=== PATIENT | male | born 1975 | race African-American/Black ===

== ENCOUNTER 2019-01-27 19:41 | Emergency (ER) | payer MEDICARE, MEDICAID ==
[~2019-01-27] VITALS: Ht 180.3 cm; Wt 110.0 kg
--- NOTE | 2019-01-27 20:04 | NUR ---
ASSIST PRIMARY WITH TRIAGE. PT PLACED IN GOWN AND ON BP CUFF, PULSE OX. PULSE OX READING 89% ON RA, 2LITERS OXYGEN PLACED VIA NC. PT DENIES ANY RECENT ILLNESS, COUGH/COLD OR GI SX. CORDOVA AND OSTOMY IN PLACE. IV NS INFUSING. CALL LIGHT WITHIN REACH, FAMILY AT BS.
[2019-01-27] MEDS ORDERED: CEFTRIAXONE PMX 1GM/50ML 50 ML IVPB ONE (21:00)
[2019-01-27] MEDS ORDERED: SODIUM CHLORIDE 0.9% 1,000ML IVBOLUS ONE (21:00)
[2019-01-27] MEDS ORDERED: SODIUM CHLORIDE FLUSH 10ML SYR IVF ONE (21:00)
[2019-01-27 21:19] LABS: MEAN CORPUSCULAR HGB CONC 32.3 g/dL (33.2-36.2); MEAN CORPUSCULAR VOLUME 86.9 fL (81-97); MEAN PLATELET VOLUME 11.8 fL (7.4-10.4); PLATELET COUNT 131 x10^3/uL (130-400); RED BLOOD COUNT 4.61 x10^6/uL (4.38-5.82); RED CELL DISTRIBUTION WIDTH 14.5 % (9.4-14.8)
[2019-01-27] MEDS ORDERED: CEFTRIAXONE PMX 1GM/50ML 50 ML ONE (21:22)
[2019-01-27 21:27] LABS: ALANINE AMINOTRANSFERASE 87 U/L (12-78); ALBUMIN 3.6 g/dL (3.4-5.0); ANION GAP 7 mmol/L (5-15); CHLORIDE 107 mmol/L (98-107); CREATININE 1.22 mg/dL (0.7-1.3)
--- NOTE | 2019-01-27 21:27 | NUR ---
ua obtained and sent to lab prior medication- medicated per emar (ABX/IVF) TEMP REBOUNDED TO 99.6 70, 110/47 PROVIDED ASKED ABOUT UA PRIOR TO ABX ADMIN
[2019-01-27 21:29] LABS: ALKALINE PHOSPHATASE 123 U/L (45-117); BILIRUBIN,TOTAL 0.2 mg/dL (0.2-1.0)
[2019-01-27 21:32] LABS: BASOPHILS # (AUTO) 0.03 x10^3/uL (0-0.1); BASOPHILS % (AUTO) 0 % (0-1); EOSINOPHILS # (AUTO) 0.05 x10^3/uL (0-0.4); EOSINOPHILS % (AUTO) 0 % (1-7); LYMPHOCYTES # (AUTO) 2.21 x10^3/uL (1-3.4); LYMPHOCYTES % (AUTO) 12 % (22-44); MD SCAN; MONOCYTES # (AUTO) 0.94 x10^3/uL (0.2-0.8); MONOCYTES % (AUTO) 5 % (2-9); NEUTROPHILS # (AUTO) 14.84 x10^3/uL (1.8-6.8); NEUTROPHILS % (AUTO) 82 % (42-75)
--- NOTE | 2019-01-27 21:40 | NUR ---
Er provider to bedside- As patient looks so well & temp improved. Er provider comfortable discharging patient with po rx
[2019-01-27 21:45] VITALS: BP 116/52
[2019-01-27 23:12] LABS: CULTURE INDICATED? YES; MICROSCOPIC INDICATED
[2019-01-28] MEDS ORDERED: TIZA2CAP PO (23:23)
[2019-01-28] MEDS ORDERED: OXYB5TAB7 PO (23:23)
[2019-01-28] MEDS ORDERED: DOCU240C53 PO (23:23)
[2019-01-28] MEDS ORDERED: cholesterol med (23:23)
[2019-01-28] MEDS ORDERED: GABA300C10 PO (23:23)
[2019-01-28] MEDS ORDERED: [UNRECOGNIZED DRUG - REMARK] (23:23)
[2019-01-28] MEDS ORDERED: BACL-19 PO (23:23)
[2019-01-28] MEDS ORDERED: [UNRECOGNIZED DRUG - CODE] RC (23:23)
== END 2019-01-27 22:45 | disposition home or self-care (01) ==
LOC: ED 22:05
DX: R50.9 Fever, unspecified (principal)
CPT/HCPCS: 36415; 71045; 80053; 81001; 83605; 85025; 87040; 87077; 87086; 87186; 96365; 99284; J0696; J7030

== ENCOUNTER 2019-01-28 21:47 | Inpatient (IN) | payer MEDICARE, MEDICAID ==
[~2019-01-28] VITALS: Ht 180.3 cm; Wt 109.7 kg
--- NOTE | 2019-01-28 22:00 | NUR ---
ERP at bedside to eval.
[2019-01-28] MEDS ORDERED: CEFTRIAXONE PMX 1GM/50ML 50 ML ONE (22:12)
[2019-01-28] MEDS ORDERED: CEFTRIAXONE PMX 1GM/50ML 50 ML IV ONE (22:30)
[2019-01-28] MEDS ORDERED: SODIUM CHLORIDE FLUSH 10ML SYR IVF ONE (22:30)
[2019-01-28 22:39] LABS: BASOPHILS # (AUTO) 0.03 x10^3/uL (0-0.1); BASOPHILS % (AUTO) 0 % (0-1); EOSINOPHILS # (AUTO) 0.31 x10^3/uL (0-0.4); EOSINOPHILS % (AUTO) 3 % (1-7); LYMPHOCYTES # (AUTO) 2.27 x10^3/uL (1-3.4); LYMPHOCYTES % (AUTO) 19 % (22-44); MD NO; MEAN CORPUSCULAR HEMOGLOBIN 28.1 pg (27.5-34.5); MEAN CORPUSCULAR HGB CONC 31.9 g/dL (33.2-36.2); MEAN CORPUSCULAR VOLUME 87.9 fL (81-97); MONOCYTES # (AUTO) 0.73 x10^3/uL (0.2-0.8); MONOCYTES % (AUTO) 6 % (2-9); NEUTROPHILS # (AUTO) 8.58 x10^3/uL (1.8-6.8); NEUTROPHILS % (AUTO) 72 % (42-75); PLATELET COUNT 117 x10^3/uL (130-400); RED BLOOD COUNT 4.42 x10^6/uL (4.38-5.82); RED CELL DISTRIBUTION WIDTH 14.9 % (9.4-14.8)
--- NOTE | 2019-01-28 22:40 | NUR ---
PT C/O CHILLS AND FEVERS. TOOK TYLENOL [employer]. WAS SEEN YESTERDAY FOR SAME AND D/C WITH PO ANTIBIOTICS. PT HAS CATHETER IN PLACE [employer] AND STATES URINE HAS BEEN CLEAR AND YELLOW BUT HAS NOTICED A SMELL. IV ACCESS OBTAINED AND LABS SENT. IV ANTIBIOTICS INFUSING--CULTURES DRAWN YESTERDAY AND PENDING. VSS. PT TO BE ADMITTED.
[2019-01-28 22:49] LABS: ALBUMIN 3.4 g/dL (3.4-5.0); ANION GAP 6 mmol/L (5-15); CALCIUM 8.9 mg/dL (8.5-10.1); CHLORIDE 111 mmol/L (98-107); CREATININE 0.93 mg/dL (0.7-1.3)
[2019-01-28] MEDS ORDERED: cholesterol med (23:23)
[2019-01-28] MEDS ORDERED: BACL-19 PO (23:23)
[2019-01-28] MEDS ORDERED: TIZA2CAP PO (23:23)
[2019-01-28] MEDS ORDERED: OXYB5TAB7 PO (23:23)
[2019-01-28] MEDS ORDERED: DOCU240C53 PO (23:23)
[2019-01-28] MEDS ORDERED: [UNRECOGNIZED DRUG - CODE] RC (23:23)
[2019-01-28] MEDS ORDERED: GABA300C10 PO (23:23)
[2019-01-28] MEDS ORDERED: [UNRECOGNIZED DRUG - REMARK] (23:23)
[2019-01-29 00:14] VITALS: BP 121/48
[2019-01-29] MEDS ORDERED: ENOXAPARIN 40 MG/0.4 ML SQ SCH (00:30)
[2019-01-29] MEDS ORDERED: ONDANSETRON 2MG/ML, 2ML IVPush PRN (00:30)
[2019-01-29] MEDS ORDERED: IBUPROFEN 600 MG TABLET PO PRN (00:30)
[2019-01-29] MEDS ORDERED: ACETAMINOPHEN 325 MG TABLET PO PRN (00:30)
[2019-01-29] MEDS ORDERED: CEFTRIAXONE PMX 1GM/50ML 50 ML IV SCH (00:30)
[2019-01-29] MEDS ORDERED: ENALAPRILAT 1.25 MG/ML, 2ML IVPush PRN (00:30)
[2019-01-29 00:45] VITALS: BP 121/48
[2019-01-29] MEDS: LACTATED RINGERS 1,000 ML IV SCH ×2 (02:11→09:15)
[2019-01-29 05:34] LABS: BASOPHILS # (AUTO) 0.03 x10^3/uL (0-0.1); BASOPHILS % (AUTO) 0 % (0-1); EOSINOPHILS # (AUTO) 0.18 x10^3/uL (0-0.4); EOSINOPHILS % (AUTO) 2 % (1-7); LYMPHOCYTES # (AUTO) 1.63 x10^3/uL (1-3.4); LYMPHOCYTES % (AUTO) 15 % (22-44); MD NO; MEAN CORPUSCULAR HEMOGLOBIN 28.4 pg (27.5-34.5); MEAN CORPUSCULAR HGB CONC 32.4 g/dL (33.2-36.2); MEAN CORPUSCULAR VOLUME 87.7 fL (81-97); MEAN PLATELET VOLUME 11.8 fL (7.4-10.4); MONOCYTES # (AUTO) 0.63 x10^3/uL (0.2-0.8); MONOCYTES % (AUTO) 6 % (2-9); NEUTROPHILS # (AUTO) 8.73 x10^3/uL (1.8-6.8); NEUTROPHILS % (AUTO) 78 % (42-75); PLATELET COUNT 123 x10^3/uL (130-400); RED BLOOD COUNT 4.55 x10^6/uL (4.38-5.82); RED CELL DISTRIBUTION WIDTH 15.2 % (9.4-14.8)
[2019-01-29 06:55] VITALS: BP 123/66
[2019-01-29] MEDS ORDERED: GABAPENTIN 300 MG CAPSULE PO SCH (09:00)
[2019-01-29] MEDS ORDERED: OXYBUTYNIN CHLORIDE 5 MG TABLET PO SCH (09:00)
[2019-01-29] MEDS ORDERED: BACLOFEN 10 MG TABLET PO SCH (09:00)
[2019-01-29] MEDS ORDERED: SENNA/DOCUSATE TABLET PO SCH (09:00)
[2019-01-29 09:47] LABS: ANION GAP 6 mmol/L (5-15); CALCIUM 8.4 mg/dL (8.5-10.1); CHLORIDE 112 mmol/L (98-107); CREATININE 0.92 mg/dL (0.7-1.3)
== END 2019-01-29 12:05 | disposition left against medical advice (07) | DRG 871 ==
LOC: ED 22:11 → EDIP 22:59 → 3N 01-29 00:05
PROVIDERS: ADMIT Family Medicine; ATTEND Family Medicine
DX: A41.9 Sepsis, unspecified organism (principal); G82.52 Quadriplegia, C1-C4 incomplete; G82.54 Quadriplegia, C5-C7 incomplete; N10 Acute pyelonephritis; E78.5 Hyperlipidemia, unspecified; F17.200 Nicotine dependence, unspecified, uncomplicated; R65.20 Severe sepsis without septic shock; Z88.8 Allergy status to other drugs, medicaments and biological substances; Z53.29 Procedure and treatment not carried out because of patient's decision for other reasons
CPT/HCPCS: 36415; 80048; 82040; 83605; 85025; 96365; J0696; J7120